=== PATIENT | female | born 1990 | race Caucasian/White ===

== ENCOUNTER 2019-10-02 07:00 | Inpatient (IN) ==
[~2019-10-02 07:00] MED LIST: RINGER'S SOLUTION,LACTATED 1,000 ML IV PRN
[2019-10-02] MEDS ORDERED: LIDOCAINE HCL 20 ML VIAL ONE (07:05)
[2019-10-02] MEDS ORDERED: fentaNYL CITRATE/PF 50 MCG/ML AMPUL ONE (07:05)
[2019-10-02] MEDS ORDERED: PROPOFOL VIAL IV ONE (07:05)
[2019-10-02] MEDS ORDERED: ONDANSETRON HCL/PF 2 MG/ML VIAL ONE (07:05)
[2019-10-02] MEDS ORDERED: KETOROLAC TROMETHAMINE 30 MG/ML VIAL ONE (07:06)
[2019-10-02] MEDS ORDERED: NEOSTIGMINE METHYLSULFATE 1 MG/ML VIAL ONE (07:06)
[2019-10-02] MEDS ORDERED: ROCURONIUM BROMIDE 10 MG/ML VIAL ONE (07:06)
[2019-10-02] MEDS ORDERED: GLYCOPYRROLATE 0.2 MG/ML VIAL ONE (07:06)
[2019-10-02] MEDS ORDERED: LIDOCAINE HCL/EPINEPHRINE 30 ML VIAL IJ ONE ×2 (07:22→08:15)
--- NOTE | 2019-10-02 07:28 | ANES ---
Anesthesia Pre Procedure Eval Vitals/Labs: Last Vital Signs Temp 36 C 10/02/19 07:11 Pulse 72 10/02/19 07:11 Resp 18 10/02/19 07:11 BP 127/92 H 10/02/19 07:11 Pulse Ox 100 10/02/19 07:11 HOME MEDICATIONS hydrocodone 5 mg-acetaminophen 325 mg tablet 1 tab PO Q6H PRN #12 tab 09/24/19 [Last Taken Unknown] Allergies/Adverse Reactions: Allergies Allergy/AdvReac Type Severity Reaction Status Date / Time No Known Allergies Allergy Verified 10/02/19 07:13 - Planned Procedure Planned Procedure: Diagnostic Laparoscopy and hysteroscopy Medication List Reviewed:: Yes Allergies Verified: Yes Medical History (Last Reviewed 10/02/19 @ 07:27 by Brian Smith CRNA) PCOS (polycystic ovarian syndrome) Surgical History (Last Reviewed 10/02/19 @ 07:27 by Brian Smith CRNA) History of tooth extraction Family History (Last Reviewed 10/02/19 @ 07:27 by Brian Smith CRNA) Father Alive and well Mother Alive and well Heart problem - Family Anesthesia History Family History:: no untoward family reactions to anesthesia - Airway/Neck/Teeth Within Normal Limits:: Yes Teeth Condition: intact Neck Exam: limited range of motion Mallampatti Score: 3 Thyromental (T-M) distance: > 6 cm Mandibulo Hyoid distance: > 3 cm - Respiratory Respiratory Physical: lungs clear Smoking Status: Never smoker Sleep Apnea currently treated: No Sleep Apnea by current assessment: No - Cardiovascular Tolerate Activity: Fair Heart Sounds: S1 & S2, Regular - Gastrointestinal NPO since: MN - Anesthesia Assessment and Plan ASA Class: PS, II Anesthesia Type Plan: General ET Planned difficult intubation/equipment available: Yes
[2019-10-02] MEDS ORDERED: SCOPOLAMINE HYDROBROMIDE 1.5 MG PATC TD ONE (07:39)
[2019-10-02] MEDS ORDERED: IBUPROFEN 800 MG TABLET PO PRN (09:19)
[2019-10-02] MEDS ORDERED: HYDROcodone/ACETAMINOPHEN 1 EACH TABLET PO PRN (09:19)
[2019-10-02] MEDS ORDERED: RINGER'S SOLUTION,LACTATED 1,000 ML IV PRN ×2 (09:19→10:08)
--- NOTE | 2019-10-02 09:37 | OR ---
Operative Report - Dictated Report Narrative: Preoperative diagnosis: tubal occlusion, PCOS Postoperative diagnosis: same Procedure: diagnostic hysteroscopy, diagnostic laparoscopy Surgeon: Dr. Palmer Anesthesia: BERNABE Anesthesiologist: Chavo Smith CRNA Description of the procedure: The patient was taken to the operating room where general anesthesia was induced. She was then prepped and draped in the lithotomy position in the standard surgical fashion. Attention was then turned to the vagina. A sterile speculum was placed in the patient's vagina. The anterior lip of the cervix was grasped with single toothed tenaculum. She did not require any dilation of the cervical os. A bilateral paracervical block was performed using a total of 20 mL of lidocaine with epinephrine. I aspirated prior to performing the block to confirm there was no bloody return. A diagnostic hysteroscopy was performed. The bilateral tubal ostias were identified. The uterine cavity appeared normal. A STEW manipulator with a white tip was placed. Attention was then turned to the abdomen. A 5mm skin incision was made at the punctum of the umbilicus. The abdomen was entered directly. The abdomen was insufflated with CO2 gas. The liver edge was examined and appeared normal. After the abdomen was insufflated the patient became bradycardic and hypoxic. Please refer to the anesthesia procedure note for additional details. The patient's bradycardia was treated and a separate monitor confirmed an improvement in the patient's saturation until it reached 100%. Once the patient's vital signs recovered completely I attempted to proceed with the procedure but she became hypoxic again and the procedure was aborted. A 5 mm trocar had been placed in the LLQ after which the procedure was aborted. All instruments were removed from the patient's abdomen. The skin incisions were closed with 4-0 vicryl. [place] rock was placed over the incisions. The incisions were covered with band aids. All sponge, lap, and needle counts were correct. The patient did not tolerate the procedure and thus it was aborted. She was extubated and transferred to the recovery room in stable condition. EBL: minimal Complications: intolerance to the Trendelenburg position and insufflation of the abdomen Specimens: none
--- NOTE | 2019-10-02 09:55 | ANES ---
Post Anesthesia Discharge - Transfer of Care Transfer of Care handoff given to nurse: Yes - Discharge from PACU Discharge from PACU when meets criteria: Yes
--- NOTE | 2019-10-02 10:11 | PN ---
Progess Note - Interim Date: 10/02/19 Time: 10:11 Narrative: 10/02/19 11:34 Went to assess the patient and explain the intraoperative findings and reasons for stopping the procedure. The patient is slightly tachycardic in the 110s and hypotensive. O2 saturations are maintained but the patient is requiring oxygen. A fluid bolus was ordered. A CBC was ordered. The patient appears pale. Abd: soft, NT, ND
[2019-10-02 10:27] LABS: Mean Cell Volume 77.7 fl (78-100); Mean Corpuscular Hgb Conc 28.3 g/dl (32-36); Mean Platelet Volume 9.1 fl (8-12.5); Neutrophil # 16.4 K/mm3 (1.3-6.0); Neutrophil % 80.2 % (42-75.0); Platelet Count 469 K/mm3 (150-450); Red Blood Count 3.05 M/mm3 (4.2-5.4); Red Cell Distribution Width 17.3 % (11.5-14.0); White Blood Count 20.5 K/mm3 (4.0-10.5)
[2019-10-02 10:30] LABS: Hemoglobin 6.7 gm/dL (12.5-16.0)
--- NOTE | 2019-10-02 10:30 | PN ---
Progess Note - Interim Date: 10/02/19 Time: 10:30 Narrative: 10/02/19 10:30 CBC results are available and hemoglobin is 6 consistent with likely intra- abdominal bleeding. 2 units of PRBCs were ordered. CT A/P with IV contrast ordered. Patient to be admitted.
[2019-10-02 10:31] LABS: Hematocrit 23.7 % (37.0-47.0)
[2019-10-02 11:21] LABS: Mean Cell Volume 77.3 fl (78-100); Mean Corpuscular Hemoglobin 21.6 pg (27-31); Mean Corpuscular Hgb Conc 27.9 g/dl (32-36); Neutrophil # 10.9 K/mm3 (1.3-6.0); Neutrophil % 78.9 % (42-75.0); Platelet Count 316 K/mm3 (150-450); Red Blood Count 2.69 M/mm3 (4.2-5.4); Red Cell Distribution Width 17.2 % (11.5-14.0); White Blood Count 13.8 K/mm3 (4.0-10.5)
[2019-10-02 11:26] LABS: Hemoglobin 5.8 gm/dL (12.5-16.0)
[2019-10-02 11:27] LABS: Hematocrit 20.8 % (37.0-47.0)
--- NOTE | 2019-10-02 11:51 | ANES ---
Post Anesthesia Assessment - Vital Signs Vitals: Last Vital Signs Temp 36.4 C 10/02/19 09:30 Pulse 100 10/02/19 11:06 Resp 20 10/02/19 11:06 BP 104/54 10/02/19 11:06 Pulse Ox 100 10/02/19 11:06 Airway Patency: Normal - Mental Status Level Of Consciousness: Awake - Pain Level Pain Score: 3 - N/V Assessment Nausea/Vomiting Presence: None Dehydration:: No
[2019-10-02] MEDS: MORPHINE SULFATE 2 MG/ML DISP.SYRIN IV PRN ×4 (12:16→19:25)
--- NOTE | 2019-10-02 13:25 | PN ---
Meena Note - Interim Date: 10/02/19 Time: 13:22 Narrative: 10/02/19 13:22 Patient awake, alert, and oriented. Her color appears much improved Her pain score is 2/10 Abdomen soft, NT, ND CT findings of retroperitoneal hematoma discussed with the patient and her spouse in detail. All questions answered as well. Kierra Lorenzo RN present for discussion and also answered additional questions. The patient understands the information presented and verbalizes understanding of doing so. The patient is asking when she can eat. The patient is counseled that will infuse blood each unit over an hour. Once the second unit of blood is infused then will recheck a CBC. If CBC is stable patient may eat a regular diet. Then will plan to recheck CBC in the morning if stable. The possibility of a transfer to [facility] was discussed with the patient and her spouse as [facility] does have interventional radiology available.
--- NOTE | 2019-10-02 16:36 | PN ---
Progess Note - Interim Date: 10/02/19 Time: 16:34 Narrative: 10/02/19 16:34 Re-examined the patient She reports abdominal pain Give norco now as it might control the patient's pain more effectively VSS VS ordered q 1 hour Second unit of blood finishing infusing CBC one hour post-transfusion Patient and updated with plan of care
[2019-10-02] MEDS: RINGER'S SOLUTION,LACTATED 1,000 ML IV PRN (16:46)
[2019-10-02] MEDS: HYDROcodone/ACETAMINOPHEN 1 EACH TABLET PO PRN ×2 (16:58→22:32)
[2019-10-02 20:43] LABS: Hematocrit 26.6 % (37.0-47.0); Hemoglobin 8.3 gm/dL (12.5-16.0); Mean Cell Volume 81.1 fl (78-100); Mean Corpuscular Hemoglobin 25.3 pg (27-31); Mean Corpuscular Hgb Conc 31.2 g/dl (32-36); Mean Platelet Volume 8.9 fl (8-12.5); Neutrophil # 9.5 K/mm3 (1.3-6.0); Neutrophil % 75.3 % (42-75.0); Platelet Count 302 K/mm3 (150-450); Red Blood Count 3.28 M/mm3 (4.2-5.4); Red Cell Distribution Width 17.9 % (11.5-14.0); White Blood Count 12.6 K/mm3 (4.0-10.5)
[2019-10-03] MEDS: RINGER'S SOLUTION,LACTATED 1,000 ML IV PRN ×2 (00:48→10:43)
[2019-10-03] MEDS: HYDROcodone/ACETAMINOPHEN 1 EACH TABLET PO PRN (01:47)
[2019-10-03] MEDS: MORPHINE SULFATE 2 MG/ML DISP.SYRIN IV PRN ×2 (02:22→07:08)
[2019-10-03] MEDS ORDERED: ONDANSETRON HCL 4 MG TABLET PO PRN (02:34)
[2019-10-03] MEDS: oxyCODONE HCL/ACETAMINOPHEN 1 TAB TABLET PO PRN ×3 (02:45→14:41)
[2019-10-03 06:55] LABS: Hematocrit 26.6 % (37.0-47.0); Hemoglobin 8.1 gm/dL (12.5-16.0); Mean Cell Volume 81.6 fl (78-100); Mean Corpuscular Hemoglobin 24.8 pg (27-31); Mean Corpuscular Hgb Conc 30.5 g/dl (32-36); Mean Platelet Volume 8.7 fl (8-12.5); Neutrophil # 10.6 K/mm3 (1.3-6.0); Neutrophil % 88.9 % (42-75.0); Platelet Count 271 K/mm3 (150-450); Red Blood Count 3.26 M/mm3 (4.2-5.4); Red Cell Distribution Width 18.2 % (11.5-14.0); White Blood Count 11.9 K/mm3 (4.0-10.5)
[2019-10-03] MEDS ORDERED: oxyCODONE HCL/ACETAMINOPHEN 1 TAB TABLET PO PRN ×2 (07:30→10:40)
[2019-10-03] MEDS ORDERED: ceFAZolin SODIUM 2 GM in DEXTROSE 5 % IN WATER 50 ML IV ONE ×2 (08:24)
[2019-10-03] MEDS ORDERED: RINGER'S SOLUTION,LACTATED 1,000 ML IV ONE (09:40)
--- NOTE | 2019-10-03 09:44 | PN ---
Subjective - Date and Time Seen Date: 10/03/19 Time: 09:27 Subjective Narrative: The patient reports that she is tired Objective Objective Narrative: See vital signs - Review of Systems Generalized/Overall Review: Reports: Weakness, Fever, Diaphoresis, Fatigue EENTM: Reports: No Symptoms Reported Respiratory: Reports: Shortness of Breath Cardiac: Reports: No Symptoms Reported Abdominal: Reports: Abdominal Pain Genitourinary Symptoms: Reports: No Symptoms Reported Musculoskeletal Complaints: Reports: No Symptoms Reported Neurological: Reports: No Symptoms Reported Skin: Reports: Change in Color Endocrine: Reports: No Symptoms Reported Misc: All systems neg except as marked - Vitals Vitals: Last Vital Signs Temp 38.6 C H 10/03/19 09:09 Pulse 130 H 10/03/19 09:09 Resp 26 H 10/03/19 09:09 BP 100/43 10/03/19 09:09 Pulse Ox 92 L 10/03/19 09:09 - Abnormal Lab Findings Abnormal Lab Findings: Abnormal Lab Results 10/02/19 10/02/19 10/02/19 Range/Units 10:10 10:10 11:04 WBC 20.5 H 13.8 H D (4.0-10.5) K/mm3 RBC 3.05 L 2.69 L (4.2-5.4) M/mm3 Hgb 6.7 L* 5.8 L* (12.5-16.0) gm/dL Hct 23.7 L* 20.8 L* (37.0-47.0) % MCV 77.7 L 77.3 L (78-100) fl MCH 22.0 L 21.6 L (27-31) pg MCHC 28.3 L 27.9 L (32-36) g/dl RDW 17.3 H 17.2 H (11.5-14.0) % Plt Count 469 H (150-450) K/mm3 Immature Gran % (Auto) 0.80 H 0.80 H (0.001-0.429) % Immature Gran # (Auto) 0.17 H 0.11 H (0.000-0.0310) K/mm3 Neutrophils % 80.2 H 78.9 H (42-75.0) % Lymphocytes % 12.4 L 13.0 L (20-51) % Neutrophils # 16.4 H 10.9 H (1.3-6.0) K/mm3 Lymphocytes # (1.5-3.5) k/mm3 Crossmatch See Detail 10/02/19 10/02/19 10/03/19 Range/Units 18:00 20:35 06:50 WBC 12.6 H 11.9 H (4.0-10.5) K/mm3 RBC 3.28 L 3.26 L (4.2-5.4) M/mm3 Hgb 8.7 L 8.3 L 8.1 L (12.5-16.0) gm/dL Hct 26.6 L 26.6 L (37.0-47.0) % MCV (78-100) fl MCH 25.3 L 24.8 L (27-31) pg MCHC 31.2 L 30.5 L (32-36) g/dl RDW 17.9 H 18.2 H (11.5-14.0) % Plt Count (150-450) K/mm3 Immature Gran % (Auto) 0.60 H (0.001-0.429) % Immature Gran # (Auto) 0.07 H 0.05 H (0.000-0.0310) K/mm3 Neutrophils % 75.3 H 88.9 H (42-75.0) % Lymphocytes % 17.6 L 5.6 L (20-51) % Neutrophils # 9.5 H 10.6 H (1.3-6.0) K/mm3 Lymphocytes # 0.66 L (1.5-3.5) k/mm3 Crossmatch - Exam Constitutional: Present: Alert, Oriented x3, Cooperative Neck: Present: normal inspection Respiratory: Present: lungs clear, normal breath sounds Cardiovascular/Chest: Present: tachycardia Abdomen: Present: soft, nontender, nondistended Extremity: Present: non-tender, no calf tenderness Skin Exam: Present: pallor Appearance: Present: appropriate appearance Eye contact: Present: cooperative Thoughts: Present: normal thought pattern Assessment/Plan Plan Narrative: POD 1 s/p hysteroscopy and laparoscopy with retroperitoneal hematoma The patient is hypotensive and tachycardic. Repeat hemoglobin 8.1 (previous hemoglobins were 8.7 and 8.3 respectively). Patient was lightheaded when she attempted to get up to the bathroom as she has declined placement of a Chanel catheter several times. The patient has been counseled on the importance of Chanel placement for accurate intake and output but she has again declined Chanel catheter. She is currently voiding. I/O 1800/250 Will give a fluid bolus now prior to rechecking CBC/CMP to see if the patient would need additional blood products prior to transfer Hypoxia: likely secondary to hypovolemia secondary to ongoing bleeding. Fever: the most common cause of fever in the first 24 hours after surgical intervention is atelectasis. However, given the blood in the pelvis that was seen on CT this could be a great medium for bacteria to grow and thus a one time dose of Ancef 2 grams IV was given. I called [facility] and was asked to fax all information to the hospitalist to see if the transfer will be accepted
[2019-10-03 09:59] LABS: Hematocrit 27.3 % (37.0-47.0); Hemoglobin 8.4 gm/dL (12.5-16.0); Mean Corpuscular Hemoglobin 24.9 pg (27-31); Mean Corpuscular Hgb Conc 30.8 g/dl (32-36); Mean Platelet Volume 8.6 fl (8-12.5); Neutrophil # 17.1 K/mm3 (1.3-6.0); Neutrophil % 90.6 % (42-75.0); Platelet Count 299 K/mm3 (150-450); Red Blood Count 3.37 M/mm3 (4.2-5.4); Red Cell Distribution Width 18.2 % (11.5-14.0); White Blood Count 18.8 K/mm3 (4.0-10.5)
[2019-10-03 10:12] LABS: Albumin * 2.8 gm/dl (3.4-5.0); Anion Gap 15.7 mmol/L (6.8-13.8); BUN/Creatinine Ratio 6.2 (9.0-21.6); Bilirubin, Total 0.7 mg/dL (0.0-1.1); Ca. Corrected For Albumin 9.1 mg/dL (8.4-10.2); Calcium * 8.5 mg/dL (7.9-10.9); Carbon Dioxide 22.2 mmol/L (24-32.6); Potassium 3.9 mmol/L (3.4-4.6); Total Protein 6.3 gm/dL (6.2-8.2)
--- NOTE | 2019-10-03 10:46 | PN ---
Meena Note - Interim Date: 10/03/19 Time: 10:41 Narrative: 10/03/19 10:41 [facility] did not accept the transfer [facility] was called. In the meantime the patient's status improved and thus a decision was made to cancel the transfer. Blood pressure is now 120/66 which is about her baseline Her heart rate is in the 130s-140s likely secondary to fever as well as anxiety Temperature has improved at 37.8 Celcius The patient's saturations are now 100% on RA The CBC was repeated and her hemoglobin is stable ruling out ongoing bleeding The patient's color is much improved She again declined a Chanel catheter. However, she voided 700 mL. Continue to monitor closely Will repeat CT to ensure retroperitoneal hematoma is not expanding
[2019-10-03] MEDS: clonazePAM 1 MG TABLET PO PRN (11:17)
[2019-10-04] MEDS: ZOLPIDEM TARTRATE 10 MG TABLET PO PRN (02:16)
[2019-10-04 06:38] LABS: Hematocrit 24.1 % (37.0-47.0); Mean Cell Volume 82.5 fl (78-100); Mean Corpuscular Hgb Conc 30.3 g/dl (32-36); Mean Platelet Volume 8.7 fl (8-12.5); Neutrophil % 84.2 % (42-75.0); Platelet Count 296 K/mm3 (150-450); Red Blood Count 2.92 M/mm3 (4.2-5.4); Red Cell Distribution Width 18.6 % (11.5-14.0); White Blood Count 22.6 K/mm3 (4.0-10.5)
[2019-10-04 06:42] LABS: Hemoglobin 7.3 gm/dL (12.5-16.0)
--- NOTE | 2019-10-04 06:44 | PN ---
Subjective - Date and Time Seen Date: 10/04/19 Time: 06:39 Subjective Narrative: The patient is doing well. She denies abdominal pain, lightheadedness/dizziness Objective Objective Narrative: See vital signs - Review of Systems Generalized/Overall Review: Reports: No Symptoms Reported Misc: All systems neg except as marked - Vitals Vitals: Last Vital Signs Temp 36.6 C 10/04/19 02:00 Pulse 105 H 10/04/19 04:57 Resp 16 10/04/19 04:57 BP 131/74 10/04/19 04:57 Pulse Ox 97 10/04/19 04:57 - Abnormal Lab Findings Abnormal Lab Findings: Abnormal Lab Results 10/03/19 10/03/19 10/03/19 Range/Units 06:50 09:55 09:55 WBC 11.9 H 18.8 H D (4.0-10.5) K/mm3 RBC 3.26 L 3.37 L (4.2-5.4) M/mm3 Hgb 8.1 L 8.4 L (12.5-16.0) gm/dL Hct 26.6 L 27.3 L (37.0-47.0) % MCH 24.8 L 24.9 L (27-31) pg MCHC 30.5 L 30.8 L (32-36) g/dl RDW 18.2 H 18.2 H (11.5-14.0) % Immature Gran % (Auto) 0.60 H (0.001-0.429) % Immature Gran # (Auto) 0.05 H 0.11 H (0.000-0.0310) K/mm3 Neutrophils % 88.9 H 90.6 H (42-75.0) % Lymphocytes % 5.6 L 4.1 L (20-51) % Neutrophils # 10.6 H 17.1 H (1.3-6.0) K/mm3 Lymphocytes # 0.66 L 0.77 L (1.5-3.5) k/mm3 Carbon Dioxide 22.2 L (24-32.6) mmol/L Anion Gap 15.7 H (6.8-13.8) mmol/L Est GFR (Non-Af Amer) 52 L D (60-130) mL/min BUN/Creatinine Ratio 6.2 L (9.0-21.6) Random Glucose 126 H (70-110) mg/dL Albumin 2.8 L (3.4-5.0) gm/dl - Exam Constitutional: Present: Alert, Oriented x3, Cooperative, No distress ENT Exam: Present: hearing grossly normal Respiratory: Present: lungs clear, normal breath sounds, no respiratory distress Cardiovascular/Chest: Present: tachycardia Abdomen: Present: soft, nontender, nondistended - incisions c/d/i /Rectal: Present: Exam deferred Extremity: Present: non-tender, no calf tenderness Skin Exam: Present: normal color, warm/dry, no cyanosis Neurologic: Present: alert, normal mood/affect, oriented x 3 Appearance: Present: appropriate appearance, appropriate insight, neat, no memory impairment Eye contact: Present: cooperative, good eye contact, normal speech Thoughts: Present: normal thought pattern Cauti Physician Documentation - Urinary Catheter Management Urethral (Chanel) Urethral Indwelling: Yes Reason for Continuing Indwelling Catheter: Measure accurate output Date of Insertion: 10/03/19 Time of Insertion: 10:30 Assessment/Plan Plan Narrative: 29 year old POD 2 s/p attempted laparoscopy Acute blood loss anemia: hemoglobin is 7 this morning. Will recheck in 6 hours Retroperitoneal hematoma: stable on CT yesterday The patient is tolerating a regular diet and ambulating Discontinue Chanel The patient did not require any pain medication overnight. Will discharge home on percocet The patient had desaturation while sleeping. I discussed this with her and the patient's . He reports that she has never had this problem before. I explained to the patient's that this is the first time that she is being monitored overnight and thus this would not have been identified in the past. He does report that she snores "but not too bad". She also takes naps during the day. He does not believe she has a problem with sleep apnea as discussed with him. He was wondering if the surgical complication would lead to sleep apnea and I explained that such complication does not cause sleep apnea. I explained that she would benefit from a sleep study as outpatient Follow-up in 1 week or sooner for any other concerns
[2019-10-04 06:55] LABS: Albumin * 2.5 gm/dl (3.4-5.0); Anion Gap 11.5 mmol/L (6.8-13.8); BUN/Creatinine Ratio 8.8 (9.0-21.6); Bilirubin, Total 0.5 mg/dL (0.0-1.1); Ca. Corrected For Albumin 9.8 mg/dL (8.4-10.2); Calcium * 8.9 mg/dL (7.9-10.9); Carbon Dioxide 25.1 mmol/L (24-32.6); Potassium 3.6 mmol/L (3.4-4.6); Total Protein 6.4 gm/dL (6.2-8.2)
[2019-10-04] MEDS: oxyCODONE HCL/ACETAMINOPHEN 1 TAB TABLET PO PRN ×3 (06:57→21:01)
--- NOTE | 2019-10-04 07:01 | DS ---
(1) S/P laparoscopy Problem: Acute (2) Retroperitoneal hematoma Problem: Acute (3) Acute blood loss anemia Problem: Acute Date of Discharge:: 10/04/19 Hospital Course: The patient was admitted after a hysteroscopy and attempted laparoscopy. Laparoscopy was complicated by retroperitoneal hematoma and acute blood loss anemia. She received two units of PRBCs. On discharge her hemoglobin is stable. She is on a regular diet, ambulating, and voiding. Procedures Performed: see notes below List Procedures: hysteroscopy, laparoscopy Results and Findings: Lab Pending Results 10/02/19 10:10: WBC 20.5 H, RBC 3.05 L, Hgb 6.7 L*, Hct 23.7 L*, MCV 77.7 L, MCH 22.0 L, MCHC 28.3 L, RDW 17.3 H, Plt Count 469 H, MPV 9.1, Immature Gran % (Auto) 0.80 H, Immature Gran # (Auto) 0.17 H, Neutrophils % 80.2 H, Lymphocytes % 12.4 L, Monocytes % 4.0, Eosinophils % 2.2, Basophils % 0.4, Nucleated RBC % 0.0, Neutrophils # 16.4 H, Lymphocytes # 2.54, Monocytes # 0.8, Eosinophils # 0.5, Absolute Basophils 0.1 10/02/19 10:10: Blood Type O Positive, Antibody Screen Negative, Crossmatch See Detail 10/02/19 11:04: WBC 13.8 H D, RBC 2.69 L, Hgb 5.8 L*, Hct 20.8 L*, MCV 77.3 L, MCH 21.6 L, MCHC 27.9 L, RDW 17.2 H, Plt Count 316, MPV 9.0, Immature Gran % (Auto) 0.80 H, Immature Gran # (Auto) 0.11 H, Neutrophils % 78.9 H, Lymphocytes % 13.0 L, Monocytes % 5.7, Eosinophils % 1.2, Basophils % 0.4, Nucleated RBC % 0.0, Neutrophils # 10.9 H, Lymphocytes # 1.79, Monocytes # 0.8, Eosinophils # 0.2, Absolute Basophils 0.1 10/02/19 18:00: Hgb 8.7 L 10/02/19 20:35: WBC 12.6 H, RBC 3.28 L, Hgb 8.3 L, Hct 26.6 L, MCV 81.1, MCH 25.3 L, MCHC 31.2 L, RDW 17.9 H, Plt Count 302, MPV 8.9, Immature Gran % (Auto) 0.60 H, Immature Gran # (Auto) 0.07 H, Neutrophils % 75.3 H, Lymphocytes % 17.6 L, Monocytes % 5.6, Eosinophils % 0.5, Basophils % 0.4, Nucleated RBC % 0.0, Neutrophils # 9.5 H, Lymphocytes # 2.21, Monocytes # 0.7, Eosinophils # 0.1, Absolute Basophils 0.1 10/03/19 06:50: WBC 11.9 H, RBC 3.26 L, Hgb 8.1 L, Hct 26.6 L, MCV 81.6, MCH 24.8 L, MCHC 30.5 L, RDW 18.2 H, Plt Count 271, MPV 8.7, Immature Gran % (Auto) 0.40, Immature Gran # (Auto) 0.05 H, Neutrophils % 88.9 H, Lymphocytes % 5.6 L, Monocytes % 4.8, Eosinophils % 0.1, Basophils % 0.2, Nucleated RBC % 0.0, Neutrophils # 10.6 H, Lymphocytes # 0.66 L, Monocytes # 0.6, Eosinophils # 0.0, Absolute Basophils 0.0 10/03/19 09:55: WBC 18.8 H D, RBC 3.37 L, Hgb 8.4 L, Hct 27.3 L, MCV 81.0, MCH 24.9 L, MCHC 30.8 L, RDW 18.2 H, Plt Count 299, MPV 8.6, Immature Gran % (Auto) 0.60 H, Immature Gran # (Auto) 0.11 H, Neutrophils % 90.6 H, Lymphocytes % 4.1 L, Monocytes % 4.5, Eosinophils % 0.0, Basophils % 0.2, Nucleated RBC % 0.0, Neutrophils # 17.1 H, Lymphocytes # 0.77 L, Monocytes # 0.8, Eosinophils # 0.0, Absolute Basophils 0.0 10/03/19 09:55: Sodium 136, Plasma Sodium 136, Potassium 3.9, Chloride 102, Carbon Dioxide 22.2 L, Anion Gap 15.7 H, BUN 8, Creatinine 1.29, Est GFR (Non-Af Amer) 52 L D, BUN/Creatinine Ratio 6.2 L, Random Glucose 126 H, Calcium 8.5, Calcium Adj for Albumin 9.1, Total Bilirubin 0.7, AST 23, ALT 42, Alkaline Phosphatase 62, Total Protein 6.3, Albumin 2.8 L 10/04/19 06:30: WBC 22.6 H D, RBC 2.92 L, Hgb 7.3 L*, Hct 24.1 L, MCV 82.5, MCH 25.0 L, MCHC 30.3 L, RDW 18.6 H, Plt Count 296, MPV 8.7, Immature Gran % (Auto) 2.00 H, Immature Gran # (Auto) 0.45 H, Neutrophils % 84.2 H, Lymphocytes % 6.2 L, Monocytes % 6.7, Eosinophils % 0.6, Basophils % 0.3, Nucleated RBC % 0.0, Neutrophils # 19.0 H, Lymphocytes # 1.41 L, Monocytes # 1.5 H, Eosinophils # 0.1, Absolute Basophils 0.1 10/04/19 06:30: Sodium 138, Plasma Sodium 138, Potassium 3.6, Chloride 105, Carbon Dioxide 25.1, Anion Gap 11.5, BUN 7, Creatinine 0.80, Est GFR (Non-Af Amer) 90 D, BUN/Creatinine Ratio 8.8 L, Random Glucose 112 H, Calcium 8.9, Calcium Adj for Albumin 9.8, Total Bilirubin 0.5, AST 24, ALT 39, Alkaline Phosphatase 67, Total Protein 6.4, Albumin 2.5 L Discharge Location: Home Disposition: Home self-care Condition: Good Discharge Activity: Other - Ambulation, no strenous activity, no sports or working out, do not lift anything greater than 10 pounds Discharge Diet: General/regular food Prescriptions (Any new or edited meds): oxyCODONE HCL/ACETAMINOPHEN [Percocet 5 MG/325 MG] 1 tab PO Q4H PRN 5 Days #12 tab PRN Reason: Pain Transmission Status: Received by [facility] #[id number] Complete Home Medications List: Complete Home Medication List: oxyCODONE HCL/ACETAMINOPHEN [Percocet 5 MG/325 MG] 1 tab PO Q4H PRN 5 Days #12 tab 10/04/19 Forms: Patient Portal Registration
[2019-10-04] MEDS: clonazePAM 1 MG TABLET PO PRN (10:58)
[2019-10-04] MEDS: ceFAZolin SODIUM 2 GM in DEXTROSE 5 % IN WATER 50 ML IV SCH ×4 (10:59→17:51)
[2019-10-04 12:51] LABS: Hematocrit 24.5 % (37.0-47.0); Mean Cell Volume 82.5 fl (78-100); Mean Corpuscular Hemoglobin 24.9 pg (27-31); Mean Corpuscular Hgb Conc 30.2 g/dl (32-36); Mean Platelet Volume 8.9 fl (8-12.5); Platelet Count 313 K/mm3 (150-450); Red Blood Count 2.97 M/mm3 (4.2-5.4); Red Cell Distribution Width 18.7 % (11.5-14.0); White Blood Count 22.6 K/mm3 (4.0-10.5)
[2019-10-04 12:54] LABS: Hemoglobin 7.4 gm/dL (12.5-16.0)
[2019-10-04 12:55] LABS: Total Cells Counted 100
[2019-10-04 13:02] LABS: Neutrophil 90 % (42-75)
[2019-10-04 13:05] LABS: Anisocytosis 2+; Band 2 % (0-2.0); Hypochromia 2+; Lymphocyte 6 % (20-51); Monocyte 2 % (0-9); Neutrophil # 20.3 K/mm3 (1.3-6.0); Platelet Estimate Normal (NORMAL)
[2019-10-04 13:06] LABS: Microcytosis 1+
[2019-10-04] MEDS: CLINDAMYCIN IN 0.9 % SOD CHLOR 900 MG/50 ML BAG IV SCH ×2 (14:14→22:07)
[2019-10-04] MEDS: DOCUSATE SODIUM 100 MG CAPSULE PO SCH (21:01)
[2019-10-04] MEDS: MORPHINE SULFATE 2 MG/ML DISP.SYRIN IV PRN (22:22)
[2019-10-05] MEDS: ceFAZolin SODIUM 2 GM in DEXTROSE 5 % IN WATER 50 ML IV SCH ×2 (02:36)
[2019-10-05] MEDS: ZOLPIDEM TARTRATE 10 MG TABLET PO PRN (02:46)
[2019-10-05 06:26] LABS: Mean Cell Volume 83.4 fl (78-100); Mean Corpuscular Hemoglobin 24.9 pg (27-31); Mean Corpuscular Hgb Conc 29.9 g/dl (32-36); Mean Platelet Volume 9.1 fl (8-12.5); Neutrophil # 13.6 K/mm3 (1.3-6.0); Neutrophil % 80.5 % (42-75.0); Platelet Count 314 K/mm3 (150-450); Red Blood Count 2.65 M/mm3 (4.2-5.4); White Blood Count 16.9 K/mm3 (4.0-10.5)
[2019-10-05 06:31] LABS: Hematocrit 22.1 % (37.0-47.0); Hemoglobin 6.6 gm/dL (12.5-16.0)
[2019-10-05] MEDS: oxyCODONE HCL/ACETAMINOPHEN 1 TAB TABLET PO PRN (06:48)
[2019-10-05] MEDS: CLINDAMYCIN IN 0.9 % SOD CHLOR 900 MG/50 ML BAG IV SCH (06:52)
[2019-10-05] MEDS: clonazePAM 1 MG TABLET PO PRN (07:18)
--- NOTE | 2019-10-05 07:27 | PN ---
Subjective - Date and Time Seen Date: 10/05/19 Time: 07:19 Subjective Narrative: The patient reports she is feeling sleepy and tired. She has no other complaints. Objective Objective Narrative: See vital signs - Review of Systems Generalized/Overall Review: Reports: Weakness EENTM: Reports: No Symptoms Reported Respiratory: Reports: No Symptoms Reported Cardiac: Reports: No Symptoms Reported Abdominal: Reports: No Symptoms Reported Genitourinary Symptoms: Reports: No Symptoms Reported Musculoskeletal Complaints: Reports: No Symptoms Reported Neurological: Reports: No Symptoms Reported Skin: Reports: No Symptoms Reported Endocrine: Reports: No Symptoms Reported - Vitals Vitals: Last Vital Signs Temp 37.3 C 10/05/19 06:50 Pulse 123 H 10/05/19 06:50 Resp 16 10/05/19 06:50 BP 129/78 10/05/19 06:50 Pulse Ox 95 10/05/19 06:50 - Abnormal Lab Findings Abnormal Lab Findings: Abnormal Lab Results 10/02/19 10/04/19 10/05/19 Range/Units 10:10 12:41 06:24 WBC 22.6 H 16.9 H D (4.0-10.5) K/mm3 RBC 2.97 L 2.65 L (4.2-5.4) M/mm3 Hgb 7.4 L* 6.6 L* (12.5-16.0) gm/dL Hct 24.5 L 22.1 L* (37.0-47.0) % MCH 24.9 L 24.9 L (27-31) pg MCHC 30.2 L 29.9 L (32-36) g/dl RDW 18.7 H 19.0 H (11.5-14.0) % Immature Gran % (Auto) 1.50 H (0.001-0.429) % Immature Gran # (Auto) 0.25 H (0.000-0.0310) K/mm3 Neutrophils % 80.5 H (42-75.0) % Neutrophils % (Manual) 90 H (42-75) % Lymphocytes % 10.5 L (20-51) % Lymphocytes % (Manual) 6 L (20-51) % Neutrophils # 13.6 H (1.3-6.0) K/mm3 Neutrophils # (Manual) 20.3 H (1.3-6.0) K/mm3 Lymphocytes # (Manual) 1.4 L (1.5-3.5) k/mm3 Crossmatch See Detail - Exam Constitutional: Present: Alert, Oriented x3, Cooperative, No distress ENT Exam: Present: hearing grossly normal Neck: Present: normal inspection Respiratory: Present: lungs clear, normal breath sounds, no respiratory distress Cardiovascular/Chest: Present: tachycardia Abdomen: Present: soft, nontender, nondistended /Rectal: Present: Exam deferred Extremity: Present: non-tender, no calf tenderness Skin Exam: Present: normal color, warm/dry, no cyanosis Neurologic: Present: alert Appearance: Present: appropriate appearance Eye contact: Present: cooperative Thoughts: Present: normal thought pattern Cauti Physician Documentation - Urinary Catheter Management Urethral (Chanel) Urethral Indwelling: No Date of Insertion: 10/03/19 Time of Insertion: 10:30 Date of Removal: 10/04/19 Time of Removal: 13:30 Assessment/Plan Plan Narrative: POD 3 s/p attempted laparoscopy Retroperitoneal hematoma: decreasing hemoglobin/hematocrit consistent with ongoing bleeding. Transfer to a higher level of care. [facility] did not have bed availability. Currently waiting for [facility] to call back. Transfuse one unit of PRBC in preparation for transfer. Acute blood loss anemia: transfuse one unit of PRBC Fever: the patient was febrile yesterday morning at which time both ancef and clindamycin were started for pelvic abscess prophylaxis. She felt warm to touch this morning and her temperature this morning was 100.4F. WBC count is trending down but there is still a leukocytosis. Hypoxia: the patient is requiring one liter of oxygen to maintain saturations be tween 97-98%. Obtain PA and lateral CXR to rule out pneumonia. Vaginal bleeding secondary to menses - Problems/Diagnosis (1) S/P laparoscopy Problem: Acute (2) Retroperitoneal hematoma Problem: Acute (3) Acute blood loss anemia Problem: Acute (4) Leukocytosis Problem: Acute (5) Fever Problem: Acute Qualifiers: Fever type: post-procedural Qualified Code(s): R50.82 - Postprocedural fever (6) Hypoxia Problem: Acute
--- NOTE | 2019-10-05 07:39 | DS ---
Transfer Discharge Summary - Diagnosis(s)/Problems (1) S/P laparoscopy Problem: Acute (2) Retroperitoneal hematoma Problem: Acute (3) Acute blood loss anemia Problem: Acute (4) Leukocytosis Problem: Acute (5) Fever Problem: Acute (6) Hypoxia Problem: Acute - Course Description of Stay: The patient was admitted for attempted laparoscopy resulting in retroperitoneal hematoma. She received 2 units of PRBCs and initially her hemoglobin was stable. A repeat CT was obtained which showed a stable retroperitoneal hematoma. However, today there is increasing bleeding suggesting ongoing bleeding. For this reason the patient is currently being transfused an additional unit of blood and I am arranging for transfer to a higher level of care. She was febrile during admission and treated with both Ancef and clindamycin. She is currently febrile at 100.4F. She received 650 mg of tylenol with her percocet which should help with decreasing her fever. Procedures Performed: see notes below Procedures: hysteroscopy, laparoscopy - Results and Findings Results and Findings: Laboratory Results - last 24 hr 10/02/19 10/04/19 10/05/19 10:10 12:41 06:24 WBC 22.6 H 16.9 H D RBC 2.97 L 2.65 L Hgb 7.4 L* 6.6 L* Hct 24.5 L 22.1 L* MCV 82.5 83.4 MCH 24.9 L 24.9 L MCHC 30.2 L 29.9 L RDW 18.7 H 19.0 H Plt Count 313 314 MPV 8.9 9.1 Immature Gran % (Auto) 1.50 H Immature Gran # (Auto) 0.25 H Neutrophils % 80.5 H Neutrophils % (Manual) 90 H Band Neuts % (Manual) 2 Lymphocytes % 10.5 L Lymphocytes % (Manual) 6 L Monocytes % 5.2 Monocytes % (Manual) 2 Eosinophils % 2.0 Basophils % 0.3 Nucleated RBC % 0.0 Neutrophils # 13.6 H Neutrophils # (Manual) 20.3 H Lymphocytes # 1.78 Lymphocytes # (Manual) 1.4 L Monocytes # 0.9 Monocytes # (Manual) 0.5 Eosinophils # 0.3 Absolute Basophils 0.1 Platelet Estimate Normal Hypochromasia 2+ Anisocytosis 2+ Microcytosis 1+ Crossmatch See Detail - Medications Medications: Active Medications Clonazepam (Klonopin) 1 mg PO TID PRN PRN Reason: Anxiety Stop: 11/02/19 10:39 Last Admin: 10/05/19 07:18 Dose: 1 mg Documented by: Docusate Sodium (Colace) 100 mg PO BID MARY KAY Stop: 11/03/19 21:01 Last Admin: 10/04/19 21:01 Dose: 100 mg Documented by: Lactated Ringer's (Lactated Ringers) 1,000 mls @ 125 mls/hr IV .Q8H PRN PRN Reason: HYDRATION Stop: 11/01/19 16:44 Last Infusion: 10/03/19 12:20 Dose: Infused Documented by: Cefazolin Sodium 2 gm/ (Dextrose/Water) 50 mls @ 100 mls/hr IV Q8H [facility]; Protocol Stop: 11/03/19 10:46 Last Infusion: 10/05/19 02:51 Dose: Infused Documented by: Clindamycin/Sodium Chloride (Cleocin) 900 mg in 50 mls @ 50 mls/hr IV Q8H MARY KAY Stop: 11/03/19 14:16 Last Admin: 10/05/19 06:52 Dose: 50 mls/hr Documented by: Morphine Sulfate (Morphine Sulfate) 2 mg IV Q10M PRN PRN Reason: Severe Pain (pain scale 7-10) Stop: 11/01/19 09:20 Last Admin: 10/04/19 22:22 Dose: 2 mg Documented by: Ondansetron HCl (Zofran) 4 mg PO Q6H PRN PRN Reason: Nausea And Vomiting Stop: 11/02/19 02:35 Last Admin: 10/03/19 02:45 Dose: 4 mg Documented by: Oxycodone/Acetaminophen (Percocet 5 Mg/325 Mg) 2 tab PO Q4H PRN PRN Reason: Moderate Pain (pain scale 4-6) Stop: 11/02/19 10:41 Last Admin: 10/05/19 06:48 Dose: 2 tab Documented by: Zolpidem Tartrate (Ambien) 10 mg PO HS PRN PRN Reason: Sleep Stop: 11/02/19 10:41 Last Admin: 10/05/19 02:46 Dose: 10 mg Documented by: Discontinued Medications Hydrocodone Bitart/Acetaminophen ([place] 5-325) 1 each PO Q3H PRN PRN Reason: Pain Stop: 11/01/19 16:35 Last Admin: 10/03/19 01:47 Dose: 1 each Documented by: Lactated Ringer's (Lactated Ringers) 1,000 mls @ 150 mls/hr IV .Q6H40M PRN PRN Reason: HYDRATION Stop: 10/02/19 23:59 Last Infusion: 10/02/19 10:05 Dose: Infused Documented by: Cefazolin Sodium 2 gm/ (Dextrose/Water) 50 mls @ 100 mls/hr IV ONCE ONE; Protocol Stop: 10/03/19 08:53 Last Infusion: 10/03/19 09:11 Dose: Infused Documented by: Lactated Ringer's (Lactated Ringers) 1,000 mls @ 999 mls/hr IV .Q1H1M ONE Stop: 10/03/19 10:40 Last Infusion: 10/03/19 10:44 Dose: Infused Documented by: Ibuprofen (Motrin) 800 mg PO PRN PRN PRN Reason: Mild pain (pain scale 1-3) Last Admin: 10/03/19 08:33 Dose: 800 mg Documented by: Lidocaine/Epinephrine (Xylocaine 1%/Epi [id number]) 26 ml IJ ONCE ONE Stop: 10/02/19 08:16 Last Admin: 10/02/19 08:15 Dose: 26 ml Documented by: Oxycodone/Acetaminophen (Percocet 5 Mg/325 Mg) 1 - 2 tab PO Q4H PRN PRN Reason: Moderate Pain (pain scale 4-6) Stop: 11/02/19 02:36 Last Admin: 10/03/19 07:07 Dose: 2 tab Documented by: Scopolamine (Transderm-Scop) 1.5 mg TD ONCE ONE Stop: 10/02/19 07:40 Last Admin: 10/02/19 07:42 Dose: 1.5 mg Documented by: - Disposition Disposition: Short Term Hospital Inpatient Condition: Stable Discharge Date: 10/05/19 Discharge Time: 07:39
[2019-10-05] MEDS: DOCUSATE SODIUM 100 MG CAPSULE PO SCH (08:34)
--- NOTE | 2019-10-05 09:13 | PN ---
Progess Note - Interim Date: 10/05/19 Time: 09:12 Narrative: 10/05/19 09:12 The patient was accepted by [facility] but awaiting for a bed to be available after discharges. The patient is currently hemodynamically stable Will transfuse an additional unit of blood prior to transfer to ensure stability The accepting team reported that if the patient becomes unstable she would be able to come through the emergency department Patient and spouse updated with the plan of care
--- NOTE | 2019-10-05 09:47 | PN ---
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 The general surgeon explained to me that pseudoanerysms can rupture and thus that they recommend the patient be transferred by helicopter. I explained to the family that the plan is to proceed with emergent surgical intervention once the patient arrives. I have asked the patient to follow-up after discharge The patient's stormed out of the room and told me that he does not want me to touch her ever again. He also said that all of this was because of me and that now she was between life and because of me and that she will not be following up. All questions answered.
[2019-10-05 10:36] VITALS: BP 136/80
== END 2019-10-05 10:39 | disposition short-term general hospital (02) | DRG 742 ==
LOC: MS 07:00 → SUR 07:00
PROVIDERS: ADMIT Obstetrics & Gynecology; ATTEND Obstetrics & Gynecology
CPT/HCPCS: 36415; 71010; 71045; 74177; 80053; 85007; 85018; 85025; 86850; J2405; P9016; Q9967